=== PATIENT | male | born 1945 | race Caucasian/White ===

== ENCOUNTER 2018-10-05 02:53 | Observation (INO) | payer OTHER ==
[2018-10-05] MEDS ORDERED: ACETAMINOPHEN 325 MG TAB PO (04:30)
[2018-10-05] MEDS ORDERED: morphine 2 MG INJ IV (04:30)
[2018-10-05] MEDS ORDERED: NACL 0.9% 3 ML SYG IV (04:30)
[2018-10-05] MEDS ORDERED: DEXTROSE 50% 50 ML SYRINGE IV ×2 (04:30)
[2018-10-05] MEDS ORDERED: HYDROCODONE/APAP (5/325) TAB PO (04:30)
[2018-10-05] MEDS ORDERED: ONDANSETRON 4 MG TAB PO (04:30)
[2018-10-05] MEDS ORDERED: DOCUSATE SODIUM 100 MG CAP PO (04:30)
[2018-10-05] MEDS ORDERED: GLUCOSE GEL 15 GRAM TUBE BUCCAL (04:30)
[2018-10-05] MEDS ORDERED: GLUCOSE GEL 15 GRAM TUBE PO ×2 (04:30)
[2018-10-05] MEDS ORDERED: GLUCAGON 1 MG INJ IM (04:30)
[2018-10-05 07:02] LABS: CREATINE KINASE 66 IU/L (23-200)
[2018-10-05 07:03] LABS: D-DIMER 328.51 ng/ml (<460)
[2018-10-05 07:06] LABS: CHOL/HDL RATIO 4.9 RATIO; CHOLESTEROL 163 mg/dl (100-200); HDL CHOLESTEROL 33 mg/dl (31-75); LDL CHOLESTEROL,CALCULATED 95 mg/dl; TRIGLYCERIDES 175 mg/dl (0-149)
[2018-10-05 07:06] LABS: MAGNESIUM 1.9 mg/dl (1.7-2.5)
[2018-10-05 07:16] LABS: CK INDEX 3.3; CK-MB 2.18 ng/ml (0.0-2.4); TROPONIN-I < 0.012 ng/ml (0.000-0.120)
[2018-10-05 07:21] LABS: HEMOGLOBIN A1C 10.8 % (0-5.9)
[2018-10-05] MEDS: ACCU-CHEK XX (07:25)
[2018-10-05 08:23] LABS: ERYTHROCYTE SEDIMENTATION RATE 7 mm/Hr (0-20)
[2018-10-05] MEDS ORDERED: NON-FORMULARY/PATIENT OWN MED (Sitagliptin* (Januvia*) 100 MG) PO (09:00)
[2018-10-05] MEDS: METOPROLOL 25 MG TAB PO ×2 (09:36→20:13)
[2018-10-05] MEDS: AMIODARONE 200 MG TAB PO (09:36)
[2018-10-05] MEDS: ENALAPRIL 10 MG TAB PO (09:36)
[2018-10-05] MEDS: PAROXETINE 20 MG TAB PO (09:36)
[2018-10-05] MEDS: ISOSORBIDE MONONITRATE(SR)30 MG TAB PO (09:36)
[2018-10-05] MEDS: FAMOTIDINE 20 MG TAB PO ×2 (09:36→20:03)
[2018-10-05] MEDS: LINAGLIPTIN 5 MG TABLET PO (09:37)
[2018-10-05] MEDS: ASPIRIN (EC) 81 MG TAB PO (09:37)
[2018-10-05] MEDS: glipiZIDE 10 MG TAB PO (09:37)
[2018-10-05] MEDS: CLOPIDOGREL 75 MG TAB PO (09:37)
[2018-10-05 11:20] LABS: CREATINE KINASE 65 IU/L (23-200)
[2018-10-05 11:34] LABS: CK INDEX 3.3; CK-MB 2.17 ng/ml (0.0-2.4); TROPONIN-I < 0.012 ng/ml (0.000-0.120)
[2018-10-05] MEDS ORDERED: INSULIN ASPART [NOVOLOG] 3 ML PEN SC (11:50)
[2018-10-05] MEDS: INSULIN ASPART [NOVOLOG] 3 ML PEN SC ×3 (11:50→20:14)
[2018-10-05] MEDS: REGADENOSON 0.4 MG/5 ML SYG (14:32)
[2018-10-05] MEDS: RIVAROXABAN 20 MG TABLET PO (17:19)
[2018-10-05] MEDS: ATORVASTATIN 80 MG TAB PO (20:03)
[2018-10-05] MEDS: INSULIN GLARGINE [LANTus] (100 UNITS/ML) SYG SC (20:10)
[2018-10-06] MEDS ORDERED: ACCU-CHEK XX ×2 (02:00)
== END 2018-10-05 21:39 | disposition home or self-care (01) ==
LOC: TEL 02:53
PROVIDERS: Internal Medicine
DX: R07.9 Chest pain, unspecified (principal); I48.2 Chronic atrial fibrillation; I10 Essential (primary) hypertension; E11.9 Type 2 diabetes mellitus without complications; E78.5 Hyperlipidemia, unspecified; I25.2 Old myocardial infarction; I25.10 Atherosclerotic heart disease of native coronary artery without angina pectoris; Z98.61 Coronary angioplasty status; Z79.01 Long term (current) use of anticoagulants; Z79.82 Long term (current) use of aspirin; Z79.4 Long term (current) use of insulin
CPT/HCPCS: 78452; 80061; 82550; 82553; 82962; 83036; 83735; 84443; 84484; 85378; 85651; 93017; 93306; 99217; G0378